=== PATIENT | female | born 1965 | race Caucasian/White ===

== ENCOUNTER 2016-07-06 16:40 | Emergency (ER) | payer MEDICARE ==
[~2016-07-06] VITALS: Ht 152.4 cm; Wt 82.2 kg
[2016-07-06] MEDS ORDERED: MORPHINE SULFATE 4 MG/ML, 1ML IVPush PRN (17:00)
[2016-07-06] MEDS ORDERED: PROCHLORPERAZINE 5 MG/ML, 2ML IVPush ONE (17:00)
[2016-07-06] MEDS ORDERED: MORPHINE SULFATE 4 MG/ML, 1ML ONE (17:08)
[2016-07-06] MEDS ORDERED: PROCHLORPERAZINE 5 MG/ML, 2ML ONE (17:37)
[2016-07-06] MEDS ORDERED: KETOROLAC 30 MG/1 ML ONE (17:42)
[2016-07-06] MEDS ORDERED: KETOROLAC 30 MG/1 ML IVPush ONE (18:00)
[2016-07-06 18:48] VITALS: BP 137/68
== END 2016-07-06 18:50 | disposition home or self-care (01) ==
LOC: ED 18:30
DX: G43.419 Hemiplegic migraine, intractable, without status migrainosus (principal); R29.810 Facial weakness
CPT/HCPCS: 36415; 70450; 80047; 82962; 85025; 85610; 85730; 93005; 96374; 96375; 99285; J0780; J1885

== ENCOUNTER 2016-09-30 21:45 | Emergency (ER) | payer MEDICARE ==
[~2016-09-30] VITALS: Ht 165.1 cm; Wt 77.0 kg
[2016-09-30] MEDS ORDERED: ONDANSETRON ODT 4 MG PO ONE (22:00)
[2016-09-30] MEDS ORDERED: MAALOX/HYOSCYAMINE/LIDOCAINE 45 ML BTL PO ONE (22:00)
[2016-09-30] MEDS ORDERED: FAMOTIDINE 20 MG TABLET PO ONE (22:00)
[2016-09-30 22:26] LABS: ASPARTATE AMINO TRANSFERASE 12 U/L (15-37); BLOOD UREA NITROGEN 17 mg/dL (7-18)
[2016-09-30 22:37] LABS: IS PT STATUS REG ER OR PRE ER? YES
[2016-09-30] MEDS ORDERED: FAMOTIDINE 20 MG TABLET ONE (22:38)
[2016-09-30] MEDS ORDERED: ONDANSETRON ODT 4 MG ONE (22:38)
[2016-09-30] MEDS ORDERED: RANI150T4 PO (22:48)
[2016-09-30] MEDS ORDERED: SUMA50TA4 PO (22:48)
[2016-09-30] MEDS ORDERED: HYDR25CA94 PO (22:48)
[2016-09-30] MEDS ORDERED: CITA40TA5 PO (22:48)
[2016-09-30] MEDS ORDERED: DIVA-68 PO (22:48)
[2016-09-30] MEDS ORDERED: TOPI100T94 PO (22:48)
[2016-09-30] MEDS ORDERED: DIVA250T6 PO (22:48)
[2016-09-30] MEDS ORDERED: MAALOX/HYOSCYAMINE/LIDOCAINE 45 ML BTL ONE (23:00)
[2016-09-30 23:41] VITALS: BP 102/59
== END 2016-09-30 23:43 | disposition home or self-care (01) ==
LOC: ED 21:56
DX: B96.81 Helicobacter pylori [H. pylori] as the cause of diseases classified elsewhere (principal); K25.3 Acute gastric ulcer without hemorrhage or perforation; Z86.73 Personal history of transient ischemic attack (TIA), and cerebral infarction without residual deficits; Z90.49 Acquired absence of other specified parts of digestive tract
CPT/HCPCS: 36415; 74022; 80053; 83690; 84484; 84703; 85025; 86677; 93005; 99285; Q0162

== ENCOUNTER → 2018-04-12 | Outpatient (CLI) | payer MEDICARE, MEDICAID ==
[~2018-04-12] MED LIST: CITA40TA5 PO; DIVA-59 PO; DIVA-61 PO; HYDR25CA94 PO; RANI150T4 PO; SUMA50TA4 PO; TOPI100T8 PO
== END | disposition home or self-care (01) ==
LOC: CARD 08:39
PROVIDERS: ATTEND Nurse Practitioner Family
DX: R55 Syncope and collapse (principal)
CPT/HCPCS: 95819

== ENCOUNTER 2018-04-19 12:40 | Outpatient (CLI) | payer MEDICARE, MEDICAID | END 2018-04-19 23:59 | disposition home or self-care (01) | LOC: CFH 12:40 | PROVIDERS: ATTEND Registered Nurse | DX: R55 Syncope and collapse (principal); Q07.00 Arnold-Chiari syndrome without spina bifida or hydrocephalus | CPT/HCPCS: 70551 ==